=== PATIENT | male | born 1955 | race Caucasian/White ===

== ENCOUNTER 2019-06-09 17:43 | Emergency (ER) | payer BC ==
[~2019-06-09] VITALS: Ht 182.9 cm; Wt 107.0 kg
[~2019-06-09 17:43] MED LIST: ALPRAZOLAM0.25 MG PO; B-COMPLEX WITH1 EAC1 PO; CALCIUM + D3 E1 EACH PO; CELEXA20 MG PO; CIALIS5 MG PO; CITALOPRAM HBR40 MG PO; FLECAINIDE ACE150 MG PO; MULTI-DAY VITA1 EACH PO; MULTIVITAMINS1 EAC7 PO; NATURAL LAXATIV25 MG PO; OMEPRAZOLE20 MG PO; SIMVASTATIN10 MG PO; SIMVASTATIN40 MG PO; VITAMIN B COMP1 EACH PO; XARELTO10 MG PO; XARELTO20 MG PO; ZETIA10 MG PO; ZINC10 MG PO
== END 2019-06-09 18:45 | disposition home or self-care (01) ==
LOC: ED 17:43
PROC: 0XQVXZZ Repair Right Little Finger, External Approach (ICD-10-PCS; principal; 2019-06-09)
DX: S61.216A Laceration without foreign body of right little finger without damage to nail, initial encounter (principal); Z88.6 Allergy status to analgesic agent; Z91.012 Allergy to eggs; Z79.899 Other long term (current) drug therapy; W45.8XXA Other foreign body or object entering through skin, initial encounter
CPT/HCPCS: 12001; 90471; 90715; 99282-25

== ENCOUNTER 2019-06-22 09:34 | Emergency (ER) | payer BC ==
[~2019-06-22] VITALS: Ht 182.9 cm; Wt 107.0 kg
--- OUTSIDE RECORDS SUMMARY | 2019-06-22 09:36 | XMS ---
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 Claudio VISIT COUNT (12 MO.) 2 JAYLIN Hatch TOTAL 2 NOTE: Visits indicate total known visits. ED/UCC VISIT TRACKING (12 MO.) 06/22/2019 09:35 [facility] Cason [place] TYPE: Emergency COMPLAINT: - STITCHES REMOVAL 06/09/2019 17:43 [facility] [place] TYPE: Emergency COMPLAINT: - HAND LACERATION DIAGNOSES: - Allergy to eggs - Other fpc (current) drug therapy - Laceration without foreign body of right little finger without damage to nail, initial encounter - Allergy status to analgesic agent status - Other foreign body or object entering through skin, initial encounter INPATIENT VISIT TRACKING (12 MO.) No inpatient visits to display in this time frame [email or web address]
== END 2019-06-22 09:53 | disposition home or self-care (01) ==
LOC: ED 09:34
DX: Z48.02 Encounter for removal of sutures (principal)

== ENCOUNTER 2025-08-01 16:21 | Inpatient (IN) | payer MEDICARE, OTHER ==
[~2025-08-01] VITALS: Ht 182.9 cm; Wt 111.6 kg
--- NOTE | ~2025-08-01 | EKG ---
[facility] [address] [place], [place] [address] Draft EK completed, results pending confirmation PATIENT NAME: SAIRADANI Electrocardiogram DATE OF : 59 PHYSICIAN: PRELIMINARY REPORT #: [id number] REPORT IS CONFIDENTIAL AND NOT TO BE RELEASED WITHOUT AUTHORIZATION
[~2025-08-01 16:21] MED LIST changes: +CLARITIN10 MG PO; +FAMOTIDINE20 MG PO; +KLOR-CON M2020 MEQ PO; +LIPITOR40 MG PO; +METOPROLOL TART25 MG PO; -MULTIVITAMINS1 EAC7 PO; +MULTIVITAMINS1 EAC8 PO; +VITAMIN B COMP1 EAC1 PO; -VITAMIN B COMP1 EACH PO; +VITAMIN C WIT1000 MG PO; +VITAMIN D3250 MCG PO
[2025-08-01 16:37] LABS: BASOPHILS 0.4 % (0.2-1.2); EOSINOPHILS 2.0 % (0.8-7.0); LYMPHOCYTES 23.0 % (21.8-53.1); MCH 30.3 PG (25.7-32.2); MCHC 32.8 g/dL (32.3-36.5); MCV 92.5 fL (79.0-92.2); MONOCYTES 18.8 % (5.3-12.2); NEUTROPHILS 55.5 % (34.0-67.9); RBC 4.65 M/uL (4.63-6.08)
[2025-08-01] MEDS ORDERED: PLAVIX75 MG PO (16:46)
[2025-08-01] MEDS ORDERED: LOSARTAN POTASS50 MG PO (16:46)
[2025-08-01 16:59] LABS: ALT (SGPT) 21.0 U/L (14-59); AST (SGOT) 17.0 U/L (15-37); GLOMERULAR FILTRATION RATE,EST 53.0 mL/min (>60); PROTEIN, TOTAL 7.2 g/dL (6.4-8.2); UREA NITROGEN 19.0 mg/dL (7-18)
[2025-08-01] MEDS ORDERED: SODIUM CHLORIDE 0.9% 1,000 ML IV PRN (17:00)
[2025-08-01] MEDS ORDERED: CITALOPRAM HYDROBROMIDE 20 MG TAB PO SCH (18:51)
[2025-08-01] MEDS ORDERED: METOPROLOL SUCCINATE 25 MG TABCR PO SCH (18:52)
[2025-08-01] MEDS ORDERED: LACTATED RINGER'S 1,000 ML IV SCH (19:00)
[2025-08-01] MEDS ORDERED: ACETAMINOPHEN 325 MG TAB PO PRN (19:00)
[2025-08-01] MEDS ORDERED: ELECTROLTYTE REPLACEMEMT CCU 1 EACH EA PO/IV SCH (19:01)
[2025-08-01] MEDS ORDERED: PANTOPRAZOLE SODIUM 40 MG TABEC PO SCH (19:01)
[2025-08-01] MEDS ORDERED: LACTOBACILLUS RHAMNOSUS GG 1 EACH CAP PO SCH (19:02)
[2025-08-01] MEDS ORDERED: POTASSIUM CHLORIDE 10 MEQ TABCR PO ONE (20:00)
[2025-08-01 20:40] VITALS: BP 153/92
[2025-08-01 21:00] VITALS: BP 114/76
[2025-08-01 22:00] VITALS: BP 123/79
[2025-08-01 23:00] VITALS: BP 96/60
[2025-08-01] MEDS ORDERED: METOPROLOL SUCCINATE 25 MG TABCR PO ONE (23:15)
[2025-08-02] VITALS (21 sets, daily range): BP systolic 95–147; BP diastolic 55–106
[2025-08-02 05:25] LABS: BASOPHILS 0.6 % (0.2-1.2); EOSINOPHILS 2.8 % (0.8-7.0); LYMPHOCYTES 17.3 % (21.8-53.1); MCH 30.3 PG (25.7-32.2); MCHC 32.7 g/dL (32.3-36.5); MCV 92.9 fL (79.0-92.2); MONOCYTES 18.4 % (5.3-12.2); NEUTROPHILS 60.5 % (34.0-67.9); RBC 4.35 M/uL (4.63-6.08)
[2025-08-02 05:37] LABS: GLOMERULAR FILTRATION RATE,EST 81.0 mL/min (>60); UREA NITROGEN 13.0 mg/dL (7-18)
[2025-08-02 06:07] LABS: BLOOD/HGB, URINE NEGATIVE (Negative); KETONE, URINE NEGATIVE (Negative); LEUK ESTERASE, URINE NEGATIVE (negative); NITRITE, URINE NEGATIVE (negative)
[2025-08-02] MEDS ORDERED: METOPROLOL SUCCINATE 50 MG TABCR PO SCH (09:00)
[2025-08-02] MEDS ORDERED: LOSARTAN POTASSIUM 50 MG TAB PO SCH (09:00)
[2025-08-02] MEDS ORDERED: ZINC SULFATE50 M1 PO (11:44)
[2025-08-02] MEDS ORDERED: WELLBUTRIN SR100 MG PO (11:45)
[2025-08-02] MEDS ORDERED: PHARMACY RENAL DOSE ADJUSTMENT 1 DOSE MISC PO SCH (12:00)
[2025-08-02] MEDS ORDERED: CLOPIDOGREL BISULFATE 75 MG TAB PO SCH (21:00)
--- NOTE | 2025-08-02 21:35 | EKG ---
[facility] [address] [place] [address] Signed Atrial fibrillation with rapid ventricular response with premature ventricular or aberrantly conducted complexes ST \T\ T wave abnormality, consider inferior ischemia Abnormal ECG When compared with ECG of 19-NOV-2022 16:34, Atrial fibrillation has replaced Sinus rhythm Vent. rate has increased BY [address] now depressed in Inferior leads ST now depressed in Lateral leads T wave inversion now evident in Inferior leads Confirmed by Ernesto Roque MD () on 08/02/2025 9:35:23 PM Electronically Signed By: ERNESTO ROQUE MD 08/02/252134 PATIENT NAME: DANI CHÁVEZ Electrocardiogram DATE OF : 59 PHYSICIAN: ERNESTO ROQUE MD REPORT #: [id number] REPORT IS CONFIDENTIAL AND NOT TO BE RELEASED WITHOUT AUTHORIZATION
[2025-08-02] MEDS ORDERED: METOPROLOL SUCCINATE 50 MG TABCR PO ONE (22:30)
[2025-08-03] VITALS (22 sets, daily range): BP systolic 99–135; BP diastolic 56–102
[2025-08-03 05:22] LABS: BASOPHILS 0.5 % (0.2-1.2); EOSINOPHILS 3.2 % (0.8-7.0); LYMPHOCYTES 18.6 % (21.8-53.1); MCH 30.5 PG (25.7-32.2); MCHC 33.3 g/dL (32.3-36.5); MCV 91.4 fL (79.0-92.2); MONOCYTES 16.4 % (5.3-12.2); NEUTROPHILS 61.0 % (34.0-67.9); RBC 4.56 M/uL (4.63-6.08)
[2025-08-03 05:39] LABS: ALT (SGPT) 21.0 U/L (14-59); AST (SGOT) 15.0 U/L (15-37); GLOMERULAR FILTRATION RATE,EST 91.0 mL/min (>60); PROTEIN, TOTAL 6.7 g/dL (6.4-8.2); UREA NITROGEN 11.0 mg/dL (7-18)
[2025-08-03] MEDS ORDERED: MAGNESIUM CHLORIDE 64 MG TABCR PO ONE (08:00)
[2025-08-03] MEDS ORDERED: POTASSIUM CHLORIDE 10 MEQ TABCR PO ONE (08:00)
[2025-08-03] MEDS ORDERED: METOPROLOL SUCCINATE 50 MG TABCR PO SCH (09:00)
[2025-08-03 22:06] LABS: ADENOVIRUS F 40/41 Not Detected (Not Detected); ASTROVIRUS Not Detected (Not Detected); C DIFFICILE TOXIN A/B Not Detected (Not Detected); CAMPYLOBACTER Not Detected (Not Detected); CRYPTOSPORIDIUM Not Detected (Not Detected); CYCLOSPORA CAYETANENSIS Not Detected (Not Detected); ENTAMOEBA HISTOLYTICA Not Detected (Not Detected); ENTEROAGGREGATIVE E COLI Not Detected (Not Detected); ENTEROPATHOGENIC E COLI Detected (Not Detected); ENTEROTOXIGENIC E COLI Detected (Not Detected); GIARDIA LAMBLIA Not Detected (Not Detected); NOROVIRUS GI/GII Not Detected (Not Detected); PLESIOMONAS SHIGELLOIDES Not Detected (Not Detected); ROTAVIRUS A Not Detected (Not Detected); SALMONELLA Not Detected (Not Detected); SAPOVIRUS Not Detected (Not Detected); SHIGA-TOXIN-PRODUCING E COLI Not Detected (Not Detected); SHIGELLA/ENTEROINVASIVE E COLI Not Detected (Not Detected); VIBRIO Not Detected (Not Detected); VIBRIO CHOLERAE Not Detected (Not Detected); YERSINIA ENTEROCOLITICA Not Detected (Not Detected)
[2025-08-04] VITALS (22 sets, daily range): BP systolic 91–143; BP diastolic 61–97
[2025-08-04 05:22] LABS: BASOPHILS 0.6 % (0.2-1.2); EOSINOPHILS 3.1 % (0.8-7.0); LYMPHOCYTES 17.9 % (21.8-53.1); MCH 30.6 PG (25.7-32.2); MCHC 33.2 g/dL (32.3-36.5); MCV 92.1 fL (79.0-92.2); MONOCYTES 16.9 % (5.3-12.2); NEUTROPHILS 60.7 % (34.0-67.9); RBC 4.58 M/uL (4.63-6.08)
[2025-08-04 05:33] LABS: GLOMERULAR FILTRATION RATE,EST 81.0 mL/min (>60); UREA NITROGEN 11.0 mg/dL (7-18)
[2025-08-04] MEDS ORDERED: MAGNESIUM SULFATE 2 GM/50 ML BAG IV ONE (08:15)
[2025-08-04] MEDS ORDERED: METOPROLOL SUCCINATE 100 MG TABCR PO SCH (09:00)
[2025-08-04] MEDS ORDERED: AZITHROMYCIN 250 MG TAB PO ONE (09:30)
[2025-08-04] MEDS ORDERED: METOPROLOL SUCCINATE 50 MG TABCR PO SCH (21:00)
--- NOTE | 2025-08-04 21:29 | EKG ---
[facility] [address] [place] [address] Signed Sinus bradycardia Otherwise normal ECG When compared with ECG of 01-AUG-2025 16:31, Sinus rhythm has replaced Atrial fibrillation Vent. rate has decreased BY [address] no longer depressed in Inferior leads ST no longer depressed in Lateral leads T wave inversion no longer evident in Inferior leads Confirmed by Ernesto Roque MD () on 08/04/2025 9:29:12 PM Electronically Signed By: ERNESTO ROQUE MD 08/04/25 2129 PATIENT NAME: DANI CHÁVEZ Electrocardiogram DATE OF : 59 PHYSICIAN: ERNESTO ROQUE MD REPORT #: [id number] REPORT IS CONFIDENTIAL AND NOT TO BE RELEASED WITHOUT AUTHORIZATION
[2025-08-05] VITALS (11 sets, daily range): BP systolic 118–131; BP diastolic 69–82
[2025-08-05 05:19] LABS: BASOPHILS 0.8 % (0.2-1.2); EOSINOPHILS 4.3 % (0.8-7.0); LYMPHOCYTES 23.0 % (21.8-53.1); MCH 30.2 PG (25.7-32.2); MCHC 32.8 g/dL (32.3-36.5); MCV 92.0 fL (79.0-92.2); MONOCYTES 14.6 % (5.3-12.2); NEUTROPHILS 55.8 % (34.0-67.9); RBC 4.11 M/uL (4.63-6.08)
[2025-08-05 05:39] LABS: ALT (SGPT) 20.0 U/L (14-59); AST (SGOT) 11.0 U/L (15-37); GLOMERULAR FILTRATION RATE,EST 72.0 mL/min (>60); PROTEIN, TOTAL 6.1 g/dL (6.4-8.2); UREA NITROGEN 15.0 mg/dL (7-18)
[2025-08-05] MEDS ORDERED: ASPIRIN 81 MG CHEW PO SCH (08:20)
[2025-08-05] MEDS ORDERED: METOPROLOL SUCCINATE 50 MG TABCR PO SCH (09:00)
[2025-08-05] MEDS ORDERED: METOPROLOL SUCCINATE 100 MG TABCR PO SCH (09:00)
[2025-08-05] MEDS ORDERED: METOPROLOL SUCC50 MG PO (09:46)
[2025-08-05] MEDS ORDERED: ASPIRIN81 MG PO (09:47)
[2025-08-05] MEDS ORDERED: AZITHROMYCIN500 MG PO (19:21)
== END 2025-08-05 10:55 | disposition home or self-care (01) | DRG 309 ==
LOC: ED 16:21 → CCU 19:02
PROVIDERS: Emergency Medicine; Family Medicine; ADMIT Internal Medicine; ATTEND Internal Medicine
DX: I48.91 Unspecified atrial fibrillation (principal); A04.1 Enterotoxigenic Escherichia coli infection; I10 Essential (primary) hypertension; I25.10 Atherosclerotic heart disease of native coronary artery without angina pectoris; R73.03 Prediabetes; E87.6 Hypokalemia; N28.89 Other specified disorders of kidney and ureter; Z79.01 Long term (current) use of anticoagulants; Z87.891 Personal history of nicotine dependence; Z95.5 Presence of coronary angioplasty implant and graft; Z98.890 Other specified postprocedural states; Z91.0120 Allergy to eggs, unspecified; Z88.6 Allergy status to analgesic agent; Z88.8 Allergy status to other drugs, medicaments and biological substances; Z79.02 Long term (current) use of antithrombotics/antiplatelets; Z79.899 Other long term (current) drug therapy
CPT/HCPCS: 36415; 80048; 80053; 81003; 83735; 84484; 85025; 93005; 93010; 96361; 96374; 96376; 99285-25; A9270; J3475; J7030; J7121

== ENCOUNTER 2025-08-18 03:08 | Emergency (ER) | payer MEDICARE, OTHER ==
[~2025-08-18] VITALS: Ht 182.9 cm; Wt 111.6 kg
--- OUTSIDE RECORDS SUMMARY | ~2025-08-18 | XMS | Continuity of Care Document ---
Demographics + + + | Address | [address] | | | [place] [address] | + + + | Preferred Language | Unknown | + + + | Marital Status | | + + + | [employer] Affiliation | Unknown | + + + | Race | White | + + + | Ethnic Group | Not or | + + + Author + + + | Author | [facility] | + + + | Organization | [facility] | + + + | Address | [address] | | | [place] [address] | + + + | Phone | | + + + Care Team Providers + + + + | Care Console Attendant Name | Role | Phone | + [...] | Moderate | | 00:00 | | [facility] | | | + + + + + + Encounters No information. Functional Status No information. Immunizations No information. Medications + + + + | date | description | facility | + + + + | (no date) | [place] | [facility] [place] [place] [facility] | | | | [facility] | + + + + | (no date) | [place] | [facility] | | | | [facility] | + + + + | (no date) | POTASSIUM CHLORIDE | [facility] | | | | [facility] | + + + + | (no date) | ASCORBIC ACID | [facility] | | | | [facility] | + + + + | (no ) | LORATADINE | [facility] | | | | [facility] | + + + + | (no ) | CLOPIDOGREL BISULFATE | [facility] | | | | [facility] | + + + + | (no ) | CITALOPRAM HYDROBROMIDE | [facility] | | | | [facility] | + + + + | (no ) | CITALOPRAM HYDROBROMIDE | [facility] | | | | [facility] | + + + + | (no date) | FAMOTIDINE | [facility] | | | | [facility] | + + + + | (no date) | Zinc Sulfate | [facility] | | | | [facility] | + + + + | (no date) | SIMVASTATIN | [facility] | | | | [facility] | + + + + | 2025-08-05 00:00 | ASPIRIN | [facility] | | | | [facility] | + + + + | (no date) | EZETIMIBE | [facility] | | | | [facility] | + + + + | (no date) | ATORVASTATIN | [facility] | | | | [facility] | + + + + | (no date) | Cholecalciferol (Vitamin | [facility] | | | D3) | [facility] | + + + + | 2025-08-05 00:00 | METOPROLOL SUCCINATE | [facility] | | | | [facility] | + + + + | (no date) | METOPROLOL TARTRATE | [facility] | | | | [facility] | + + + + | (no date) | LOSARTAN POTASSIUM | [facility] | | | | [facility] | + + + + | (no date) | buPROPion HCL | [facility] | | | | [facility] | + + + + Problems + + + + | date | description | facility | + + + + | 2025-08-01 00:00 | Atrial fibrillation with | [facility] | | | rapid ventricular response | [facility] | + + + + Procedures No [...] (missing) | (missing) | [facility] | [facility] | [facility] | | | [...] 56 | (missing) | (missing) | | [facility] | 05:07:08 | [facility] | | | [...]
[~2025-08-18 03:08] MED LIST changes: +ASPIRIN81 MG PO; +AZITHROMYCIN500 MG PO; +LOSARTAN POTASS50 MG PO; +METOPROLOL SUCC50 MG PO; +PLAVIX75 MG PO; +WELLBUTRIN SR100 MG PO; +ZINC SULFATE50 M1 PO
--- OUTSIDE RECORDS SUMMARY | 2025-08-18 04:08 | XMS ---
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 Melba has no Care Guidelines for this patient. Claudio V[facility] (12 MO.) [facility] NOTE: Visits indicate total known visits. ED/[facility] VISIT TRACKING (12 MO.) 08/18/2025 03:[address] [facility] [address] [facility] [place] TYPE: Emergency COMPLAINT: - HEART RATE ISSUES 08/01/2025 16:22 J[facility] C[facility] [place] TYPE: Emergency COMPLAINT: - DIARRHEA INPATIENT VISIT TRACKING (12 MO.) 08/01/2025 19:02 [facility] [place] TYPE: Critical Care COMPLAINT: - AFIB RVR DIAGNOSES: - Allergy status to analgesic agent - Allergy status to analgesic agent - Allergy status to other drugs, medicaments and biological substances - Allergy status to other drugs, medicaments and biological substances - Allergy to eggs, unspecified - Allergy to eggs, unspecified - Atherosclerotic heart disease of [place] coronary artery without angina pectoris - Atherosclerotic heart disease of [place] coronary artery without angina pectoris - Enterotoxigenic Escherichia coli infection - Enterotoxigenic Escherichia coli infection - Essential (primary) hypertension - Essential (primary) hypertension - Hypokalemia - Hypokalemia - detention (current) use of anticoagulants - detention (current) use of anticoagulants - buttermaker (current) use of antithrombotics/antiplatelets - buttermaker (current) use of antithrombotics/antiplatelets - Other shelter (current) drug therapy - Other tank terminal gauger (current) drug therapy - Other specified disorders of kidney and ureter - Other specified disorders of kidney and ureter - Other specified postprocedural states - Other specified postprocedural states - Palpitations - Personal history of nicotine dependence - Personal history of nicotine dependence - Prediabetes - Prediabetes - Presence of coronary angioplasty implant and graft - Presence of coronary angioplasty implant and graft - Unspecified atrial fibrillation - Unspecified atrial fibrillation [email or web address]
[2025-08-18 04:14] LABS: ALT (SGPT) 26.0 U/L (14-59); AST (SGOT) 16.0 U/L (15-37); BASOPHILS 0.8 % (0.2-1.2); EOSINOPHILS 2.6 % (0.8-7.0); GLOMERULAR FILTRATION RATE,EST 76.0 mL/min (>60); LYMPHOCYTES 21.0 % (21.8-53.1); MCH 30.8 PG (25.7-32.2); MCHC 33.0 g/dL (32.3-36.5); MCV 93.3 fL (79.0-92.2); MONOCYTES 12.0 % (5.3-12.2); NEUTROPHILS 63.3 % (34.0-67.9); PROTEIN, TOTAL 7.9 g/dL (6.4-8.2); RBC 4.94 M/uL (4.63-6.08); UREA NITROGEN 15.0 mg/dL (7-18)
[2025-08-18] MEDS ORDERED: METOPROLOL TARTRATE 5 MG/5 ML VIAL IV ONE (04:15)
[2025-08-18] MEDS ORDERED: SODIUM CHLORIDE 0.9% 500 ML IV PRN (04:15)
[2025-08-18 05:02] VITALS: BP 140/91
[2025-08-18] MEDS ORDERED: PANTOPRAZOLE SO40 MG PO (15:22)
[2025-08-18] MEDS ORDERED: TAMSULOSIN HCL0.4 MG PO (15:22)
--- NOTE | 2025-08-18 21:49 | EKG ---
[facility] [address] [place] [address] Signed Atrial fibrillation with rapid ventricular response Nonspecific ST abnormality Abnormal QRS-T angle, consider primary T wave abnormality Abnormal ECG When compared with ECG of 04-AUG-2025 11:43, Atrial fibrillation has replaced Sinus bradycardia Confirmed by Ernesto Roque MD () on 08/18/2025 9:49:03 PM Electronically Signed By: ERNESTO ROQUE MD 08/18/25 2149 PATIENT NAME: ADNI CHÁVEZ Electrocardiogram DATE OF : 59 PHYSICIAN: ERNESTO ROQUE MD REPORT #: [id number] REPORT IS CONFIDENTIAL AND NOT TO BE RELEASED WITHOUT AUTHORIZATION
== END 2025-08-18 05:02 | disposition home or self-care (01) ==
LOC: ED 03:08
PROVIDERS: Family Medicine
DX: I48.91 Unspecified atrial fibrillation (principal); Z79.02 Long term (current) use of antithrombotics/antiplatelets; Z79.899 Other long term (current) drug therapy; Z88.8 Allergy status to other drugs, medicaments and biological substances; Z87.891 Personal history of nicotine dependence
CPT/HCPCS: 36415; 80053; 83735; 85025; 93005; 93010; J7040

== ENCOUNTER 2025-08-20 08:19 | Emergency (ER) | payer MEDICARE, OTHER ==
[~2025-08-20] VITALS: Ht 185.4 cm; Wt 106.3 kg
--- OUTSIDE RECORDS SUMMARY | ~2025-08-20 | XMS | Continuity of Care Document ---
Demographics + + + | Address | [address] | | | [place] [address] | + + + | Preferred Language | Unknown | + + + | Marital Status | | + + + | Christian Affiliation | Unknown | + + + | Race | White | + + + | Ethnic Group | Not or | + + + Author + + + | Author | [facility] | + + + | Organization | [facility] | + + + | Address | [address] | | | [place] [address] | + + + | Phone | | + + + Care Team Providers + + + + | Care Flap Curer Name | Role | Phone | + + + + Unavailable | Unavailable | + + + + Unavailable | Unavailable | + + + + Allergies and Intolerances + + + + + + | date | description | facility | reaction | severity | + + + + + + | 2025-08-01 | Eggs | [facility] - | (no reaction) | Moderate | | 00:00 | | [facility] | | | + + + + + + | 2025-08-01 | Aspirin | [facility] - | (no reaction) | Moderate | | 00:00 | | [facility] | | | + + + + + + | 2025-08-01 | Eggs | [facility] - | (no reaction) | Moderate | | 00:00 | | [facility] | | | + + + + + + | 2025-08-01 | Meperidine | [facility] - | (no reaction) | Severe | | 00:00 | | [facility] | | | + + + + + + | 2025-08-01 | Aspirin | [facility] - | (no reaction) | Moderate | | 00:00 | | [facility] | | | + + + + + + | 2025-08-01 | Meperidine | [facility] - | (no reaction) | Severe | | 00:00 | | [facility] | | | + + + + + + | 2025-08-01 | Meperidine | [facility] - | (no reaction) | Severe | | 00:00 | | [facility] | | | + + + + + + | 2025-08-01 | Aspirin | [facility] - | (no reaction) | Moderate | | 00:00 | | [place] [facility] | | | | | [facility] | | | + + + + + + Encounters No information. Functional Status No information. Immunizations No information. Medications + + + + | date | description | facility | + + + + | (no date) | RIV[facility]OX[place]AN | [facility] | | | | [facility] | + + + + | (no date) | RIV[place]OX[place]AN | [facility] | | | | [facility] | + + + + | (no date) | POTASSIUM CHLORIDE | [facility] | | | | [facility] | + + + + | (no date) | ASCORBIC ACID | [facility] | | | | [facility] | + + + + | (no ) | LORATADINE | [facility] | | | | [facility] | + + + + | (no ) | CLOPIDOGREL BISULFATE | [facility] | | | | [facility] | + + + + | (no ) | CITALOPRAM HYDROBROMIDE | [facility] | | | | [facility] | + + + + | (no ) | CITALOPRAM HYDROBROMIDE | [facility] | | | | [facility] | + + + + | (no date) | FAMOTIDINE | [facility] | | | | [facility] | + + + + | (no date) | Zinc Sulfate | [facility] | | | | [facility] | + + + + | (no date) | SIMVASTATIN | [facility] | | | | [facility] | + + + + | 2025-08-05 00:00 | ASPIRIN | [facility] | | | | [facility] | + + + + | (no date) | EZETIMIBE | [facility] | | | | [facility] | + + + + | (no date) | ATORVASTATIN | [facility] | | | | [facility] | + + + + | (no date) | Cholecalciferol (Vitamin | [facility] | | | D3) | [facility] | + + + + | 2025-08-05 00:00 | METOPROLOL SUCCINATE | [facility] | | | | [facility] | + + + + | (no date) | METOPROLOL TARTRATE | [facility] | | | | [facility] | + + + + | (no date) | LOSARTAN POTASSIUM | [facility] | | | | [facility] | + + + + | (no date) | buPROPion HCL | [facility] | | | | [facility] | + + + + Problems + + + + | date | description | facility | + + + + | 2025-08-01 00:00 | Atrial fibrillation with | [facility] | | | rapid ventricular response | [facility] | + + + + Procedures No information. Results/Labs +--------+--------+ +---------+--------+---------+ | test | date | facility | value | unit | notes | +--------+--------+ +---------+--------+---------+ + + | Result panel 1 | + + + + + +--------+ + + | Troponin I | 2025-08-01 | | 20.3 | (missing) | (missing) | | SerPl | 16:32:08 | [facility] | | | | [facility] | | | | + + + +--------+ + + + + | Result panel 2 | + + + + + + + + + | Prot Ur | 2025-08-02 | | NEGATIVE | (missing) | (missing) | | Strip-mCnc | 05:50:08 | [facility] | | | | | [facility] | | | | + + + + + + + + + | Result panel 3 | + + + + + + + + + | | 2025-08-02 | | NORMAL | (missing) | (missing) | | Urobilinogen | 05:50:08 | [facility] | | | | | Ur | [facility]-mCnc | [facility] | | | | + + + + + + + + + | Result panel 4 | + + + + + + + + + | Nitrite Ur | 2025-08-02 | | NEGATIVE | (missing) | (missing) | | Ql Strip | 05:50:08 | [facility] | | | | | | [facility] | | | | + + + + + + + + + | Result panel 5 | + + + + + + + + + | Leukocyte | 2025-08-02 | | NEGATIVE | (missing) | (missing) | | esterase Ur | 05:50:08 | [facility] | | | | | Ql Strip | [facility] | | | | + + + + + + + + + | Result panel 6 | + + + + + + + + + | C | 2025-08-02 | | Not | (missing) | (missing) | | coli+jej+ups | 05:50:08 | [facility] | Detected | | | | a DNA Stl Ql | [facility] - [facility] | | | | [facility]-prob | | [facility] | | | | | e | | | | | | + + + + + + + + + | Result panel 7 | + + + + + + + + + | C dif tox | 2025-08-02 | | Not | (missing) | (missing) | | tcdA+tcdB | 05:50:08 | [facility] | Detected | | | | Stl Ql | [facility]-prob | [facility] | | | [facility] | | [facility] | | | | + + + + + + + + + | Result panel 8 | + + + + + + + + + | P | 2025-08-02 | | Not | (missing) | (missing) | | shigelloides | 05:50:08 | [facility] | Detected | | | | DNA Stl Ql | [facility] - [facility]-prob | [facility] | | | [facility] | | [facility] | | | | + + + + + + + + + | Result panel 9 | + + + + + + + + + | S ent+bong | 2025-08-02 | | Not | (missing) | (missing) | | DNA Stl Ql | 05:50:08 | [facility] | Detected | | | | [facility]+non-prob | [facility] | | | | + + + + + + + + + | Result panel 10 | + + + + + + + + + | V | 2025-08-02 | | Not | (missing) | (missing) | | chol+para+vu | 05:50:08 | [facility] | Detected | | | | l DNA Stl Ql | [facility] - [facility] | | | | | [facility]non-prob | | [facility] | | | | | e | | | | | | + + + + + + + + + | Result panel 11 | + + + + + + + + + | V cholerae | 2025-08-02 | | Not | (missing) | (missing) | | DNA Stl Ql | 05:50:08 | [facility] | Detected | | | | [facility]+non-prob | [facility] | | | | + + + + + + + + + | Result panel 12 | + + + + + + + + + | Color Ur | 2025-08-02 | | YELLOW | (missing) | (missing) | | Auto | 05:50:08 | [facility] | | | | | | [facility] | | | | + + + + + + + + + | Result panel 13 | + + + + + + + + + | Y enterocol | 2025-08-02 | | Not | (missing) | (missing) | | DNA Stl Ql | 05:50:08 | [facility] | Detected | | | | [facility]+non-prob | [facility] - [facility] | | | | + + + + + + + + + | Result panel 14 | + + + + + + + + + | EAEC Garry | 2025-08-02 | | Not | (missing) | (missing) | | plas | 05:50:08 | [facility] | Detected | | | | aggR+aatA St | | - [facility] | [facility]-prb | | [facility] | | | | + + + + + + + + + | Result panel 15 | + + + + + + + + + | EPEC eae | 2025-08-02 | | Detected | (missing) | (missing) | | gene Stl Ql | 05:50:08 | [facility] | | | | | [facility]+non-prob | [facility] - [facility] | | | | + + + + + + + + + | Result panel 16 | + + + + + + + + + | ETEC | 2025-08-02 | | Detected | (missing) | (missing) | | ltA+st1a+st1 | 05:50:08 | [facility] | | | | | b tox St | | - [facility]-prob | | [facility] | [facility] | [facility] | | | | + + + + + + + + + | Result panel 17 | + + + + + + + + + | EC | 2025-08-02 | | Not | (missing) | (missing) | | stx1+stx2 | 05:50:08 | [facility] | Detected | | | | genes Stl Ql | [facility] - [facility] | | | | [facility]non-prob | | [facility] | | | | | e | | | | | | + + + + + + + + + | Result panel 18 | + + + + + + + + + | E coli O157 | 2025-08-02 | | Not | (missing) | (missing) | | DNA Stl Ql | 05:50:08 | [facility] | applicable | | | | [facility]+non-prob | [facility] - [facility] | | | | + + + + + + + + + | Result panel 19 | + + + + + + + + + | Shigella | 2025-08-02 | | Not | (missing) | (missing) | | sp+EIEC ipaH | 05:50:08 | [facility] | Detected | | | | St | | - [facility]-prob | | [facility] | | | | e | | [facility] | | | | + + + + + + + + + | Result panel 20 | + + + + + + + + + | Cryptosp | 2025-08-02 | | Not | (missing) | (missing) | | DNA Stl Ql | 05:50:08 | [facility] | Detected | | | | [facility]+non-prob | [facility] | | | | + + + + + + + + + | Result panel 21 | + + + + + + + + + | C | 2025-08-02 | | Not | (missing) | (missing) | | cayetanensis | 05:50:08 | [facility] | Detected | | | | DNA Stl Ql | | - [facility] | [facility]-prob | | [facility] | | | | [facility] | | [facility] | | | | + + + + + + + + + | Result panel 22 | + + + + + + + + + | E histolyt | 2025-08-02 | | Not | (missing) | (missing) | | DNA Stl Ql | 05:50:08 | [facility] | Detected | | | | [facility]+non-prob | [facility] | [facility] | | | | + + + + + + + + + | Result panel 23 | + + + + + +---------+ + + | Character | 2025-08-02 | | CLEAR | (missing) | (missing) | | Ur | 05:50:08 | [facility] | | | | | | [facility] | | | | + + + +---------+ + + + + | Result panel 24 | + + + + + + + + + | G lamblia | 2025-08-02 | | Not | (missing) | (missing) | | DNA Stl Ql | 05:50:08 | [facility] | Detected | | | | [facility]+non-prob | [facility] | | | | + + + + + + + + + | Result panel 25 | + + + + + + + + + | AdV 40+41 | 2025-08-02 | | Not | (missing) | (missing) | | DNA Stl Ql | 05:50:08 | [facility] | Detected | | | | [facility]+non-prob | [facility] | | | | + + + + + + + + + | Result panel 26 | + + + + + + + + + | Azael typ | 2025-08-02 | | Not | (missing) | (missing) | | 1-8 RNA Stl | 05:50:08 | [facility] | Detected | | | | Ql | | - [facility]-prob | | [facility] | | | | [facility] | | [facility] | | | | + + + + + + + + + | Result panel 27 | + + + + + + + + + | Norovirus | 2025-08-02 | | Not | (missing) | (missing) | | GI+II RNA | 05:50:08 | [facility] | Detected | | | | Stl Ql | | - [facility]-prob | [facility] | | | [facility] | | [facility] | | | | + + + + + + + + + | Result panel 28 | + + + + + + + + + | RVA RNA Stl | 2025-08-02 | | Not | (missing) | (missing) | | Ql | 05:50:08 | [facility] | Detected | | | | [facility]+non-prob | [facility] | | | | + + + + + + + + + | Result panel 29 | + + + + + + + + + | Nish | 2025-08-02 | | Not | (missing) | (missing) | | I+II+IV+V | 05:50:08 | [facility] | Detected | | | | RNA Stl Ql | [facility] - [facility]-prob | [facility] | | | [facility] | | [facility] | | | | + + + + + + + + + | Result panel 30 | + + + + + + + + + | Glucose Ur | 2025-08-02 | | NEGATIVE | (missing) | (missing) | | Ql Strip | 05:50:08 | [facility] | | | | | | [facility] | | | | + + + + + + + + + | Result panel 31 | + + + + + + + + + | Nhan Ur | 2025-08-02 | | NEGATIVE | (missing) | (missing) | | Ql Strip | 05:50:08 | [facility] | | | | | | [facility] | | | | + + + + + + + + + | Result panel 32 | + + + + + + + + + | Ketonerebecca Ur | 2025-08-02 | | NEGATIVE | (missing) | (missing) | | Ql Strip | 05:50:08 | [facility] | | | | | | [facility] | | | | + + + + + + + + + | Result panel 33 | + + + + + +---------+ + + | Sp Gr Ur | 2025-08-02 | | 1.025 | (missing) | (missing) | | Strip | 05:50:08 | [facility] | | | | | | [facility] | | | | + + + +---------+ + + + + | Result panel 34 | + + + + + + + + + | Hgb Ur Ql | 2025-08-02 | | NEGATIVE | (missing) | (missing) | | Strip | 05:50:08 | [facility] | | | | | | [facility] | | | | + + + + + + + + + | Result panel 35 | + + + + + +-------+ + + | pH Ur Strip | 2025-08-02 | | 5.5 | (missing) | (missing) | | | 05:50:08 | [facility] | | | | | | [facility] | | | | + + + +-------+ + + + + | Result panel 36 | + + + + + + + + + | | 2025-08-04 | | (missing) | (missing) | (missing) | | Electrocardi | 21:29 | [facility] | | | | | ogram | [facility] | | | | + + + + + + + + + | Result panel 37 | + + + + + +--------+ + + | WBC # Bld | 2025-08-05 | | 9.25 | (missing) | (missing) | | Auto | 05:07:08 | [facility] | | | | | | [facility] | | | | + + + +--------+ + + + + | Result panel 38 | + + + + + +--------+ + + | RBC # Bld | 2025-08-05 | | 4.11 | (missing) | (missing) | | Auto | 05:07:08 | [facility] | | | | | | [facility] | | | | + + + +--------+ + + + + | Result panel 39 | + + + + + +--------+ + + | Hgb | 2025-08-05 | | 12.4 | (missing) | (missing) | | Bld-mCnc | 05:07:08 | [facility] | | | | | | [facility] | | | | + + + +--------+ + + + + | Result panel 40 | + + + + + +--------+ + + | Hct VFr.DF | 2025-08-05 | | 37.8 | (missing) | (missing) | | Bld Auto | 05:07:08 | [facility] | | | | | [facility] | | | | + + + +--------+ + + + + | Result panel 41 | + + + + + +--------+ + + | RBC Auto | 2025-08-05 | | 92.0 | (missing) | (missing) | | | 05:07:08 | [facility] | | | | | [facility] | | | | + + + +--------+ + + + + | Result panel 42 | + + + + + +--------+ + + | MCH RBC Qn | 2025-08-05 | | 30.2 | (missing) | (missing) | | Auto | 05:07:08 | [facility] | | | | | | [facility] | | | | + + + +--------+ + + + + | Result panel 43 | + + + + + +--------+ + + | MCHC RBC | 2025-08-05 | | 32.8 | (missing) | (missing) | | Auto-EntMCnc | 05:07:08 | [facility] | | | | | | [facility] | | | | + + + +--------+ + + + + | Result panel 44 | + + + + + +-------+ + + | Platelet # | 2025-08-05 | | 296 | (missing) | (missing) | | Bld Auto | 05:07:08 | [facility] | | | | | | [facility] | | | | + + + +-------+ + + + + | Result panel 45 | + + + + + +--------+ + + | Neutrophils | 2025-08-05 | | 55.8 | (missing) | (missing) | | NFr Bld | 05:07:08 | [facility] | | | | | Auto | | [facility] | | | | + + + +--------+ + + + + | Result panel 46 | + + + + + +--------+ + + | Lymphocytes | 2025-08-05 | | 23.0 | (missing) | (missing) | | NFr Bld | 05:07:08 | [facility] | | | | | Auto | | [facility] | | | | + + + +--------+ + + + + | Result panel 47 | + + + + + +--------+ + + | Monocytes | 2025-08-05 | | 14.6 | (missing) | (missing) | | NFr Bld Auto | 05:07:08 | [facility] | | | | | | [facility] | | | | + + + +--------+ + + + + | Result panel 48 | + + + + + +-------+ + + | Eosinophil | 2025-08-05 | | 4.3 | (missing) | (missing) | | NFr Bld Auto | 05:07:08 | [facility] | | | | | | [facility] | | | | + + + +-------+ + + + + | Result panel 49 | + + + + + +-------+ + + | Basophils | 2025-08-05 | | 0.8 | (missing) | (missing) | | NFr Terad Auto | 05:07:08 | [facility] | | | | | | [facility] | | | | + + + +-------+ + + + + | Result panel 50 | + + + + + +-------+---------+ + | Glucose | 2025-08-05 | | 106 | mg/dL | (missing) | | SerPl-mCnc | 05:07:08 | [facility] | | | | | | [facility] | | | | + + + +-------+---------+ + + + | Result panel 51 | + + + + + +------+---------+ + | BUN | 2025-08-05 | | 15 | mg/dL | (missing) | | Silvana | 05:07:08 | [facility] | | | | + + + +------+---------+ + + + | Result panel 52 | + + + + + +--------+---------+ + | Creat | 2025-08-05 | | 1.11 | mg/dL | (missing) | | SerPl-mCnc | 05:07:08 | [facility] | | | | | | [facility] | | | | + + + +--------+---------+ + + + | Result panel 53 | + + + + + +------+ + + | eGFRcr | 2025-08-05 | | 72 | (missing) | (missing) | | SerPlBld | 05:07:08 | [facility] | | | | | CKD-EPI 2020 | [facility] | | | | + + + +------+ + + + + | Result panel 54 | + + + + + +---------+ + + | BUN/Creat | 2025-08-05 | | 13.51 | (missing) | (missing) | | SerPl | 05:07:08 | [facility] | | | | | | | - | | | | | | | [facility] | | | | + + + +---------+ + + + + | Result panel 55 | + + + + + +-------+ + + | Sodium | 2025-08-05 | | 142 | (missing) | (missing) | | SerPl-sCnc | 05:07:08 | [facility] | | | | | | [facility] | | | | + + + +-------+ + + + + | Result panel 56 | + + + + + +-------+ + + | Potassium | 2025-08-05 | | 4.0 | (missing) | (missing) | | SerPl-sCnc | 05:07:08 | [facility] | | | | | | [facility] | | | | + + + +-------+ + + + + | Result panel 57 | + + + + + +-------+ + + | Chloride | 2025-08-05 | | 106 | (missing) | (missing) | | SerPl-sCnc | 05:07:08 | [facility] | | | | | | [facility] | | | | + + + +-------+ + + + + | Result panel 58 | + + + + + +------+ + + | CO2 | 2025-08-05 | | 28 | (missing) | (missing) | | SerPl-sCnc | 05:07:08 | [facility] | | | | | | [facility] | | | | + + + +------+ + + + + | Result panel 59 | + + + + + +--------+ + + | Anion Gap | 2025-08-05 | | 12.0 | (missing) | (missing) | | SerPl | 05:07:08 | [facility] | | | | | Calculated.4 | | [facility]-sCnc | [facility] | | | | + + + +--------+ + + + + | Result panel 60 | + + + + + +-------+---------+ + | Calcium | 2025-08-05 | | 8.4 | mg/dL | (missing) | | SerPl-[facility]aquelin | 05:07:08 | [facility] | | | | | | [facility] | | | | + + + +-------+---------+ + + + | Result panel 61 | + + + + + +-------+---------+ + | Magnesium | 2025-08-05 | | 2.0 | mg/dL | (missing) | | SerPl-mCnc | 05:07:08 | [facility] | | | | | | [facility] | | | | + + + +-------+---------+ + + + | Result panel 62 | + + + + + +-------+ + + | Prot | 2025-08-05 | | 6.1 | (missing) | (missing) | | [facility] | 05:07:08 | [facility] | | | | [facility] | | | | + + + +-------+ + + + + | Result panel 63 | + + + + + +-------+ + + | Albumin | 2025-08-05 | | 2.7 | (missing) | (missing) | | SerPl-mCnc | 05:07:08 | [facility] | | | | | | [facility] | | | | + + + +-------+ + + + + | Result panel 64 | + + + + + +-------+ + + | Globulin | 2025-08-05 | | 3.4 | (missing) | (missing) | | Ser-mCnc | 05:07:08 | [facility] | | | | | [facility] | | | | + + + +-------+ + + + + | Result panel 65 | + + + + + +--------+ + + | | 2025-08-05 | | 0.79 | (missing) | (missing) | | Albumin/Glob | 05:07:08 | [facility] | | | | | SerPl | [facility] | | | | + + + +--------+ + + + + | Result panel 66 | + + + + + +-------+---------+ + | Bilirub | 2025-08-05 | | 0.4 | mg/dL | (missing) | | SerPl-mCnc | 05:07:08 | [facility] | | | | | [facility] | | | | + + + +-------+---------+ + + + | Result panel 67 | + + + + + +------+ + + | AST | 2025-08-05 | | 11 | (missing) | (missing) | | SerPl-cCnc | 05:07:08 | [facility] | | | | | | [facility] | | | | + + + +------+ + + + + | Result panel 68 | + + + + + +------+ + + | ALT | 2025-08-05 | | 20 | (missing) | (missing) | | SerPl-cCnc | 05:07:08 | [facility] | | | | + + + +------+ + + + + | Result panel 69 | + + + + + +------+ + + | ALP | 2025-08-05 | | 54 | (missing) | (missing) | | [facility] | 05:07:08 | [facility] | | | | + + + +------+ + + Social History +--------+ + + | date | description | facility | +--------+ + + Vital Signs + + + +---------+ | date | measurement | value | units | + + + +---------+ | 2025-08-01 00:00 | BMI | 33.4 | kg/m2 | + + + +---------+ | 2025-08-01 00:00 | height_metric | 182.88 | cm | + + + +---------+ | 2025-08-01 00:00 | height_standard | 72 | in | + + + +---------+ | 2025-08-01 00:00 | weight_metric | 111.601 | kg | + + + +---------+ | 2025-08-01 00:00 | weight_standard | 246.037 | lb | + + + +---------+ | 2025-08-05 00:00 | BP_diastolic | 70 | mmHg | + + + +---------+ | 2025-08-05 00:00 | BP_systolic | 120 | mmHg | + + + +---------+ | 2025-08-05 00:00 | heart_rate | 68 | /min | + + + +---------+ | 2025-08-05 00:00 | o2_saturation | 97 | % | + + + +---------+ | 2025-08-05 00:00 | respiration_rate | 17 | /min | + + + +---------+ | 2025-08-05 00:00 | | 98 | F | | | temperature_standar | | | | | d | | | + + + +---------+"
[~2025-08-20 08:19] MED LIST changes: +PANTOPRAZOLE SO40 MG PO; +TAMSULOSIN HCL0.4 MG PO
--- OUTSIDE RECORDS SUMMARY | 2025-08-20 08:20 | XMS ---
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 Melba has no Care Guidelines for this patient. Claudio VISIT COUNT (12 MO.) 3 [facility] [place] [facility]. TOTAL 3 NOTE: Visits indicate total known visits. [facility] (12 MO.) [facility] COMPLAINT: - HEART RATE ISSUE 08/18/2025 03:08 [facility] C[facility] [place] TYPE: Emergency COMPLAINT: - HEART RATE [...] eggs, unspecified - Atherosclerotic heart disease of [place] coronary artery without angina pectoris - Atherosclerotic heart disease of [place] coronary artery without angina pectoris - Enterotoxigenic Escherichia coli infection - Enterotoxigenic Escherichia coli infection - Essential (primary) hypertension - Essential (primary) hypertension - Hypokalemia - Hypokalemia - half-way (current) use of anticoagulants - 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
[2025-08-20 09:00] LABS: BASOPHILS 0.9 % (0.2-1.2); EOSINOPHILS 2.4 % (0.8-7.0); LYMPHOCYTES 19.0 % (21.8-53.1); MCH 30.8 PG (25.7-32.2); MCHC 33.3 g/dL (32.3-36.5); MCV 92.3 fL (79.0-92.2); MONOCYTES 13.9 % (5.3-12.2); NEUTROPHILS 63.5 % (34.0-67.9); RBC 4.94 M/uL (4.63-6.08)
[2025-08-20] MEDS ORDERED: METOPROLOL TARTRATE 5 MG/5 ML VIAL IV SCH (09:00)
[2025-08-20 09:37] LABS: INR 1.16 (0.80-1.30); PROTIME 14.4 Sec (11.2-14.2)
[2025-08-20 09:44] LABS: ALT (SGPT) 24.0 U/L (14-59); AST (SGOT) 15.0 U/L (15-37); GLOMERULAR FILTRATION RATE,EST 73.0 mL/min (>60); PROTEIN, TOTAL 7.5 g/dL (6.4-8.2); UREA NITROGEN 15.0 mg/dL (7-18)
[2025-08-20] MEDS ORDERED: DILTIAZEM 24HR120 MG PO (10:24)
[2025-08-20 10:30] VITALS: BP 118/82
--- NOTE | 2025-08-21 21:15 | EKG ---
[facility] [address] [facility] [place] [address] Signed Atrial fibrillation with rapid ventricular response with premature ventricular or aberrantly conducted complexes Abnormal ECG When compared with ECG of 18-AUG-2025 03:17, ST no longer depressed in Anterior leads Confirmed by Ernesto Roque MD () on 08/21/2025 9:15:15 PM Electronically Signed By: ERNESTO ROQUE MD 08/21/[id number] PATIENT NAME: DANI CHÁVEZ Electrocardiogram DATE OF : 59 PHYSICIAN: ERNESTO ROQUE MD REPORT #: [id number] REPORT IS CONFIDENTIAL AND NOT TO BE RELEASED WITHOUT AUTHORIZATION
== END 2025-08-20 10:30 | disposition home or self-care (01) ==
LOC: ED 08:19
PROVIDERS: Emergency Medicine
DX: I48.91 Unspecified atrial fibrillation (principal); Z79.899 Other long term (current) drug therapy; Z88.8 Allergy status to other drugs, medicaments and biological substances; Z87.891 Personal history of nicotine dependence
CPT/HCPCS: 36415; 71045; 80053; 84484; 85025; 85610; 93005; 93010; 96374; 96375; 99285-25